=== PATIENT | male | born 1940 | race Caucasian/White ===

== ENCOUNTER 2017-05-16 14:08 | Inpatient (IN) ==
[2017-05-16] MEDS ORDERED: ACETAMINOPHEN 325 MG TABLET PO PRN (15:50)
[2017-05-16] MEDS ORDERED: LOPERAMIDE 2 MG CAPSULE PO ONE (15:50)
[2017-05-16] MEDS ORDERED: ALUMINUM/MAGNES/SIMETH MAX STR 30 ML UDCUP PO PRN (15:50)
[2017-05-16] MEDS ORDERED: guaiFENesin 200 MG/10 ML UDCUP PO PRN (15:50)
[2017-05-16] MEDS ORDERED: MAGNESIUM HYDROXIDE SUSP 30 ML UDCUP PO PRN (15:50)
[2017-05-16] MEDS ORDERED: ONDANSETRON 4 MG/2 ML VIAL IV PRN (15:53)
[2017-05-16] MEDS ORDERED: LOPERAMIDE 2 MG CAPSULE PO PRN ×2 (15:53→16:21)
[2017-05-16] MEDS ORDERED: traMADol 50 MG TABLET PO PRN (16:05)
[2017-05-16] MEDS ORDERED: ALBUTEROL 2.5 MG/3 ML NEB RESP TX PRN (16:12)
[2017-05-16] MEDS: DEXTROSE 5% LACTATED RINGERS 1,000 ML IV SCH (16:51)
[2017-05-16] MEDS: LEVOFLOXACIN 500 MG TABLET PO SCH (16:51)
[2017-05-16] MEDS: methylPREDNISolone SOD SUC 40 MG/1 ML VIAL IV SCH (16:51)
[2017-05-16 17:08] LABS: Basophils # 0.1 10*3/uL (0.0-0.2); Basophils % 1.1 % (0.0-0.8); Eosinophils # 0.3 10*3/uL (0.0-0.87); Eosinophils % 3.9 % (0.00-10.9); Hematocrit 35.1 VOL% (42.0-52.0); Hemoglobin 11.4 GM/DL (14.0-18.0); Immature Granulocytes Absolute 0.14 #; Lymphocytes % 13.8 % (21.2-54.2); Mean Corpuscular HGB Conc 32.5 GM/DL (32-36); Mean Corpuscular Hemoglobin 28 PG (27-34); Mean Corpuscular Volume 85.8 FL (87-102); Mean Platelet Volume 9.7 FL (9.6-12.0); Monocytes % 14.2 % (1.7-12.7); Neutrophils # 4.6 10*3/uL (1.4-7.4); Platelet Count 300 T/CUMM (130-400); Red Blood Count 4.09 MC/CUMM (3.8-5.5); Red Cell Distribution Width 13.9 % (9.3-17.3); White Blood Count 7.1 T/CUMM (4-12)
[2017-05-16] MEDS: PIPERACILLIN/TAZOBACTAM 3,375 MG in SODIUM CHLORIDE 0.9% 100 ML IV SCH (17:26)
[2017-05-16 17:40] LABS: Albumin 2.9 G/DL (3.4-5.0); Bilirubin,Total 0.5 MG/DL (0.2-1.0); Free T4 (Free Thyroxine) 1.6 NG/DL (0.76-1.46); Osmolality,Calculated 284.1 MOS/KG (273-304); Potassium 4.6 MMOL/L (3.5-5.1); Thyroid Stimulating Hormone 0.634 uIU/ml (0.358-3.74); Total Protein 6.6 G/DL (6.4-8.3)
[2017-05-16] MEDS: ALBUTEROL/IPRATROPIUM 3 ML NEB RESP TX SCH (19:46)
[2017-05-17] MEDS: ALBUTEROL/IPRATROPIUM 3 ML NEB RESP TX SCH ×4 (00:24→19:35)
[2017-05-17] MEDS: PIPERACILLIN/TAZOBACTAM 3,375 MG in SODIUM CHLORIDE 0.9% 100 ML IV SCH ×3 (01:30→17:50)
[2017-05-17] MEDS: methylPREDNISolone SOD SUC 40 MG/1 ML VIAL IV SCH ×2 (03:55→17:53)
[2017-05-17] MEDS ORDERED: ANORO INH SCH (09:00)
[2017-05-17] MEDS: FLUTICASONE 50 MCG NASAL SPRAY 16 GM BOTTLE BOTH NARES SCH (09:07)
[2017-05-17] MEDS: POLYETHYLENE GLYCOL POWDER 17 GM PACK PO PRN (09:07)
[2017-05-17] MEDS: PANTOPRAZOLE 40 MG TABLET PO SCH (09:07)
[2017-05-17] MEDS: LEVOFLOXACIN 500 MG TABLET PO SCH (09:07)
[2017-05-17 18:36] LABS: Apearance,Urine Slightly Hazy (Clear); Bilirubin,Urine Negative (Negative); Blood, Urine Negative (Negative); Glucose,Urine (UA) 150 mg/dL (Negative); Ketones,Urine Negative (Negative); Mucus,Urine Occasional /LPF (Occasional); Nitrite,Urine Negative (Negative); Protein,Urine 30 MG/DL; RBC,Urine <1 /HPF (0-4); Squamous Epithelial Cell,Urine Occasional /HPF (0-10); Urine Color Yellow (Yellow); Urine Specific Gravity 1.029 (1.001-1.035); Urine Urobilinogen < 2.0 EU/DL (0.2-1.0); WBC,Urine 8 /HPF (0-6)
[2017-05-18] MEDS: ALBUTEROL/IPRATROPIUM 3 ML NEB RESP TX SCH ×4 (00:39→19:59)
[2017-05-18] MEDS: PIPERACILLIN/TAZOBACTAM 3,375 MG in SODIUM CHLORIDE 0.9% 100 ML IV SCH ×3 (01:50→16:27)
[2017-05-18] MEDS: methylPREDNISolone SOD SUC 40 MG/1 ML VIAL IV SCH (04:24)
[2017-05-18] MEDS: DEXTROSE 5% LACTATED RINGERS 1,000 ML IV SCH ×2 (07:24→08:48)
[2017-05-18] MEDS: FLUTICASONE 50 MCG NASAL SPRAY 16 GM BOTTLE BOTH NARES SCH (08:49)
[2017-05-18] MEDS: LEVOFLOXACIN 500 MG TABLET PO SCH (08:49)
[2017-05-18] MEDS: PANTOPRAZOLE 40 MG TABLET PO SCH (08:49)
[2017-05-18] MEDS ORDERED: methylPREDNISolone SOD SUC 40 MG/1 ML VIAL IV SCH (10:10)
[2017-05-18] MEDS: POLYETHYLENE GLYCOL POWDER 17 GM PACK PO PRN (11:45)
[2017-05-19] MEDS: PIPERACILLIN/TAZOBACTAM 3,375 MG in SODIUM CHLORIDE 0.9% 100 ML IV SCH ×2 (00:30→08:13)
[2017-05-19] MEDS: ALBUTEROL/IPRATROPIUM 3 ML NEB RESP TX SCH ×2 (01:11→07:29)
[2017-05-19] MEDS: POLYETHYLENE GLYCOL POWDER 17 GM PACK PO PRN (05:21)
[2017-05-19] MEDS: DEXTROSE 5% LACTATED RINGERS 1,000 ML IV SCH (07:49)
[2017-05-19 08:05] VITALS: BP 153/74
[2017-05-19] MEDS: PANTOPRAZOLE 40 MG TABLET PO SCH (08:13)
[2017-05-19] MEDS: LEVOFLOXACIN 500 MG TABLET PO SCH (08:13)
[2017-05-19] MEDS: FLUTICASONE 50 MCG NASAL SPRAY 16 GM BOTTLE BOTH NARES SCH (08:14)
[2017-05-20] MEDS ORDERED: predniSONE 20 MG TABLET PO SCH (09:00)
== END 2017-05-19 10:45 | disposition home or self-care (01) | DRG 190 ==
LOC: N.5E 14:55
PROVIDERS: ADMIT Internal Medicine Pulmonary Disease; ATTEND Internal Medicine Pulmonary Disease

== ENCOUNTER 2017-11-07 15:31 | Inpatient (IN) ==
[2017-11-07] MEDS ORDERED: ALBUTEROL 2.5 MG/3 ML NEB RESP TX PRN (17:32)
[2017-11-07] MEDS ORDERED: traMADol 50 MG TABLET PO PRN (17:33)
[2017-11-07] MEDS ORDERED: ALPRAZolam 0.5 MG TABLET PO PRN (17:38)
[2017-11-07] MEDS ORDERED: methylPREDNISolone SOD SUC 40 MG/1 ML VIAL IV SCH (18:00)
[2017-11-07] MEDS ORDERED: MEROPENEM 1,000 MG in SODIUM CHLORIDE 0.9% 100 ML IV SCH (18:00)
[2017-11-07] MEDS: PIPERACILLIN/TAZOBACTAM 3,375 MG in SODIUM CHLORIDE 0.9% 100 ML IV SCH (18:32)
[2017-11-07 18:43] LABS: Basophils # 0.1 10*3/uL (0.0-0.2); Eosinophils # 0.2 10*3/uL (0.0-0.87); Eosinophils % 4.6 % (0.00-10.9); Hematocrit 38.5 VOL% (42.0-52.0); Hemoglobin 12.8 GM/DL (14.0-18.0); Immature Granulocytes Absolute 0.23 #; Lymphocytes # 1.1 10*3/uL (1.4-4.0); Lymphocytes % 23.2 % (21.2-54.2); Mean Corpuscular HGB Conc 33.2 GM/DL (32-36); Mean Corpuscular Hemoglobin 30 PG (27-34); Mean Corpuscular Volume 88.9 FL (87-102); Mean Platelet Volume 10.2 FL (9.6-12.0); Monocytes # 0.9 10*3/uL (0.11-0.8); Monocytes % 18.8 % (1.7-12.7); Neutrophils # 2.1 10*3/uL (1.4-7.4); Neutrophils % 46.4 % (38.7-73.9); Platelet Count 217 T/CUMM (130-400); Red Blood Count 4.33 MC/CUMM (3.8-5.5); Red Cell Distribution Width 14.1 % (9.3-17.3); White Blood Count 4.6 T/CUMM (4-12)
[2017-11-07 19:00] LABS: Albumin 2.8 G/DL (3.4-5.0); Bilirubin,Total 0.4 MG/DL (0.2-1.0); Calcium 8.7 MG/DL (8.5-10.1); Osmolality,Calculated 287.1 MOS/KG (273-304); Potassium 4.5 MMOL/L (3.5-5.1); Total Protein 5.7 G/DL (6.4-8.3)
[2017-11-07 19:23] LABS: Immunoglobulin A 116 MG/DL (70-400); Immunoglobulin G 418 MG/DL (700-1600); Immunoglobulin M 24 MG/DL (40-230)
[2017-11-07 19:37] LABS: Eosinophils 8 % (0-10); Lymphocytes 28 % (20-55); Myelocytes 2 %; Platelet Estimate Adequate; Polychromasia Few; Segmented Neutrophils 46 % (50-85); Total Cells Counted 100
[2017-11-07] MEDS: TAMSULOSIN 0.4 MG CAPSULE PO SCH (20:53)
[2017-11-07] MEDS: methylPREDNISolone SOD SUC 40 MG/1 ML VIAL IV SCH (20:53)
[2017-11-07] MEDS ORDERED: ONDANSETRON 4 MG/2 ML VIAL IV PRN (20:53)
[2017-11-07] MEDS ORDERED: ACETAMINOPHEN 325 MG TABLET PO PRN (20:54)
[2017-11-07] MEDS ORDERED: LOPERAMIDE 2 MG CAPSULE PO PRN (20:55)
[2017-11-07] MEDS ORDERED: MAGNESIUM HYDROXIDE SUSP 30 ML UDCUP PO PRN (20:55)
[2017-11-07] MEDS: AZELASTINE NASAL 137 MCG/SPRAY 30 ML BOTTLE BOTH NARES SCH (20:57)
[2017-11-07] MEDS ORDERED: guaiFENesin 200 MG/10 ML UDCUP PO PRN (20:59)
[2017-11-07] MEDS ORDERED: ALUMINUM/MAGNES/SIMETH MAX STR 30 ML UDCUP PO PRN (21:01)
[2017-11-07] MEDS: MEROPENEM 1,000 MG in SODIUM CHLORIDE 0.9% 100 ML IV SCH (22:54)
[2017-11-07] MEDS ORDERED: PANTOPRAZOLE 40 MG TABLET PO SCH (23:01)
[2017-11-07] MEDS: PANTOPRAZOLE 40 MG TABLET PO SCH (23:13)
[2017-11-08] MEDS: PIPERACILLIN/TAZOBACTAM 3,375 MG in SODIUM CHLORIDE 0.9% 100 ML IV SCH ×2 (04:29→16:00)
[2017-11-08] MEDS ORDERED: diphenhydrAMINE 50 MG/1 ML VIAL IV ONE (07:27)
[2017-11-08] MEDS ORDERED: ACETAMINOPHEN 500 MG TABLET PO ONE (07:27)
[2017-11-08] MEDS ORDERED: IMMUNE GLOBULIN 10% 20 GM, IMMUNE GLOBULIN 10% 10 GM in PREMIX 1 EACH IV ONE (08:30)
[2017-11-08] MEDS: methylPREDNISolone SOD SUC 40 MG/1 ML VIAL IV SCH ×2 (08:56→21:41)
[2017-11-08] MEDS: TAMSULOSIN 0.4 MG CAPSULE PO SCH ×2 (08:57→21:40)
[2017-11-08] MEDS: MONTELUKAST 10 MG TABLET PO SCH (08:57)
[2017-11-08] MEDS: AZELASTINE NASAL 137 MCG/SPRAY 30 ML BOTTLE BOTH NARES SCH ×2 (08:58→21:41)
[2017-11-08] MEDS: FLUTICASONE 50 MCG NASAL SPRAY 16 GM BOTTLE BOTH NARES SCH (08:58)
[2017-11-08] MEDS ORDERED: PANTOPRAZOLE 40 MG TABLET PO SCH (09:00)
[2017-11-08] MEDS: MEROPENEM 1,000 MG in SODIUM CHLORIDE 0.9% 100 ML IV SCH ×2 (13:19→23:48)
[2017-11-08] MEDS: amLODIPine 2.5 MG TABLET PO SCH (15:59)
[2017-11-08 18:41] LABS: Apearance,Urine CLEAR (Clear); Bilirubin,Urine Negative (Negative); Blood, Urine Negative (Negative); Glucose,Urine (UA) Negative (Negative); Ketones,Urine Negative (Negative); Nitrite,Urine Negative (Negative); Protein,Urine Negative; RBC,Urine 1 /HPF (0-4); Squamous Epithelial Cell,Urine Occasional /HPF (0-10); Urine Color Straw (Yellow); Urine Specific Gravity 1.009 (1.001-1.035); Urine Urobilinogen < 2.0 EU/DL (0.2-1.0)
[2017-11-08] MEDS: PANTOPRAZOLE 40 MG TABLET PO SCH (21:46)
[2017-11-09] MEDS: PIPERACILLIN/TAZOBACTAM 3,375 MG in SODIUM CHLORIDE 0.9% 100 ML IV SCH ×2 (01:04→10:30)
[2017-11-09] MEDS ORDERED: LEVOFLOXACIN INJ 100 ML IV ONE (05:49)
[2017-11-09] MEDS: MONTELUKAST 10 MG TABLET PO SCH (10:04)
[2017-11-09] MEDS: amLODIPine 2.5 MG TABLET PO SCH (10:05)
[2017-11-09] MEDS: TAMSULOSIN 0.4 MG CAPSULE PO SCH ×2 (10:05→21:01)
[2017-11-09] MEDS: FLUTICASONE 50 MCG NASAL SPRAY 16 GM BOTTLE BOTH NARES SCH (10:05)
[2017-11-09] MEDS: AZELASTINE NASAL 137 MCG/SPRAY 30 ML BOTTLE BOTH NARES SCH ×2 (10:05→21:01)
[2017-11-09] MEDS ORDERED: POLYETHYLENE GLYCOL POWDER 17 GM PACK PO PRN (10:06)
[2017-11-09] MEDS: MEROPENEM 1,000 MG in SYRINGE 1 EACH IV SCH ×2 (10:19→17:16)
[2017-11-09] MEDS: methylPREDNISolone SOD SUC 40 MG/1 ML VIAL IV SCH ×2 (10:20→21:01)
[2017-11-09] MEDS: amLODIPine 5 MG TABLET PO SCH (10:23)
[2017-11-09] MEDS: PANTOPRAZOLE 40 MG TABLET PO SCH (21:01)
[2017-11-10] MEDS: MEROPENEM 1,000 MG in SYRINGE 1 EACH IV SCH ×3 (01:38→17:40)
[2017-11-10] MEDS: MONTELUKAST 10 MG TABLET PO SCH (09:45)
[2017-11-10] MEDS: TAMSULOSIN 0.4 MG CAPSULE PO SCH ×2 (09:46→20:34)
[2017-11-10] MEDS: amLODIPine 5 MG TABLET PO SCH (09:46)
[2017-11-10] MEDS: methylPREDNISolone SOD SUC 40 MG/1 ML VIAL IV SCH ×2 (09:46→21:40)
[2017-11-10] MEDS: FLUTICASONE 50 MCG NASAL SPRAY 16 GM BOTTLE BOTH NARES SCH (09:50)
[2017-11-10] MEDS: AZELASTINE NASAL 137 MCG/SPRAY 30 ML BOTTLE BOTH NARES SCH ×2 (09:50→20:34)
[2017-11-10] MEDS: PANTOPRAZOLE 40 MG TABLET PO SCH (20:34)
[2017-11-11] MEDS: MEROPENEM 1,000 MG in SYRINGE 1 EACH IV SCH ×3 (02:54→16:23)
[2017-11-11] MEDS ORDERED: amLODIPine 10 MG TABLET PO SCH (09:00)
[2017-11-11] MEDS: FLUTICASONE 50 MCG NASAL SPRAY 16 GM BOTTLE BOTH NARES SCH (09:24)
[2017-11-11] MEDS: AZELASTINE NASAL 137 MCG/SPRAY 30 ML BOTTLE BOTH NARES SCH ×2 (09:25→21:18)
[2017-11-11] MEDS: MONTELUKAST 10 MG TABLET PO SCH (09:26)
[2017-11-11] MEDS: methylPREDNISolone SOD SUC 40 MG/1 ML VIAL IV SCH ×2 (09:26→21:25)
[2017-11-11] MEDS: TAMSULOSIN 0.4 MG CAPSULE PO SCH ×2 (09:26→21:19)
[2017-11-11] MEDS: PANTOPRAZOLE 40 MG TABLET PO SCH (21:19)
[2017-11-12] MEDS: MEROPENEM 1,000 MG in SYRINGE 1 EACH IV SCH ×3 (01:20→16:53)
[2017-11-12] MEDS: FLUTICASONE 50 MCG NASAL SPRAY 16 GM BOTTLE BOTH NARES SCH (09:31)
[2017-11-12] MEDS: AZELASTINE NASAL 137 MCG/SPRAY 30 ML BOTTLE BOTH NARES SCH ×2 (09:31→20:42)
[2017-11-12] MEDS: TAMSULOSIN 0.4 MG CAPSULE PO SCH ×2 (09:32→20:42)
[2017-11-12] MEDS: MONTELUKAST 10 MG TABLET PO SCH (09:32)
[2017-11-12] MEDS: amLODIPine 10 MG TABLET PO SCH (09:32)
[2017-11-12] MEDS: methylPREDNISolone SOD SUC 40 MG/1 ML VIAL IV SCH ×2 (09:32→21:13)
[2017-11-12] MEDS: PANTOPRAZOLE 40 MG TABLET PO SCH (20:42)
[2017-11-13] MEDS: MEROPENEM 1,000 MG in SYRINGE 1 EACH IV SCH (02:20)
[2017-11-13 08:01] VITALS: BP 184/76
[2017-11-13] MEDS ORDERED: predniSONE 20 MG TABLET PO SCH (09:00)
[2017-11-13] MEDS ORDERED: DOXYCYCLINE HYCLATE 100 MG CAPSULE PO SCH (09:00)
[2017-11-13] MEDS: MONTELUKAST 10 MG TABLET PO SCH (09:06)
[2017-11-13] MEDS: amLODIPine 10 MG TABLET PO SCH (09:06)
[2017-11-13] MEDS: TAMSULOSIN 0.4 MG CAPSULE PO SCH (09:07)
[2017-11-13] MEDS: FLUTICASONE 50 MCG NASAL SPRAY 16 GM BOTTLE BOTH NARES SCH (09:07)
[2017-11-13] MEDS: AZELASTINE NASAL 137 MCG/SPRAY 30 ML BOTTLE BOTH NARES SCH (09:07)
== END 2017-11-13 09:28 | disposition home or self-care (01) | DRG 191 ==
LOC: N.2E 16:07
PROVIDERS: ADMIT Internal Medicine Pulmonary Disease; ATTEND Internal Medicine Pulmonary Disease